=== PATIENT | female | born 1955 | race Caucasian/White ===

== ENCOUNTER → 2020-11-16 12:05 | Outpatient (BNVA) | payer SELFPAY | PROVIDERS: Family Provider Nurse Practitioner; PCP Nurse Practitioner; Visit Provider Nurse Practitioner Family | DX: R39.11 Hesitancy of micturition (principal) | CPT/HCPCS: 81000 ==

== ENCOUNTER → 2021-03-05 09:40 | Outpatient (BNVA) | payer SELFPAY | PROVIDERS: Family Provider Nurse Practitioner; PCP Nurse Practitioner; Visit Provider Dermatology | DX: Z01.89 Encounter for other specified special examinations (principal) ==

== ENCOUNTER 2021-05-29 14:35 | Outpatient (CLI) | payer MEDICARE, SELFPAY ==
--- NOTE | 2021-05-29 15:00 | US_ITS ---
WS: [email or web address] RIGHT UPPER QUADRANT ULTRASOUND HISTORY: R10.11 - Right upper quadrant pain COMPARISON: None available. Liver: 16.7 cm in length. Normal size liver. No bile duct dilatation or mass. Portal Vein: Normal hepatopetal flow with monophasic waveform. Gallbladder: Normally distended gallbladder with no stones or wall thickening. CBD: 0.4 cm Pancreas: Poorly visualized. Right kidney: 10.7 cm in length. Normal size and echogenicity. No hydronephrosis or mass. Aorta and IVC: Unremarkable abdominal aorta and IVC. No ascites. US/US gall bladder 11762 IMPRESSION: 1. Normal gallbladder. 2. No bile duct dilatation. 3. Poorly visualized pancreas.
== END 2021-05-29 14:36 | disposition home or self-care (01) ==
PROVIDERS: PCP Nurse Practitioner; Visit Provider Nurse Practitioner
DX: R10.11 Right upper quadrant pain (principal)
CPT/HCPCS: 76705

== ENCOUNTER → 2021-10-16 09:21 | Outpatient (BNVA) | payer MEDICARE, SELFPAY | PROVIDERS: PCP Nurse Practitioner; Visit Provider Nurse Practitioner | DX: I73.00 Raynaud's syndrome without gangrene (principal); G25.81 Restless legs syndrome; M79.7 Fibromyalgia; E11.65 Type 2 diabetes mellitus with hyperglycemia; F41.8 Other specified anxiety disorders; J45.909 Unspecified asthma, uncomplicated; E79.0 Hyperuricemia without signs of inflammatory arthritis and tophaceous disease | CPT/HCPCS: 80053; 80061; 81000; 83036; 85025 ==

== ENCOUNTER → 2022-01-21 08:55 | Outpatient (BNVA) | payer MEDICARE, SELFPAY | PROVIDERS: PCP Nurse Practitioner; Visit Provider Nurse Practitioner | DX: E11.65 Type 2 diabetes mellitus with hyperglycemia (principal); J45.909 Unspecified asthma, uncomplicated; G25.81 Restless legs syndrome; G47.00 Insomnia, unspecified; F41.8 Other specified anxiety disorders; I73.00 Raynaud's syndrome without gangrene; B37.0 Candidal stomatitis; M79.7 Fibromyalgia | CPT/HCPCS: 80053; 80061; 81003; 82043; 82607; 83036; 84443; 85025; 87086 ==

== ENCOUNTER → 2022-02-20 10:03 | Outpatient (BNVA) | payer MEDICARE, SELFPAY | PROVIDERS: PCP Nurse Practitioner; Visit Provider Nurse Practitioner | DX: M79.10 Myalgia, unspecified site (principal); E55.9 Vitamin D deficiency, unspecified; M79.603 Pain in arm, unspecified | CPT/HCPCS: 80053; 82306; 82607; 85651; 86140 ==

== ENCOUNTER 2022-02-25 06:52 | Outpatient (CLI) | payer MEDICARE, SELFPAY ==
--- NOTE | 2022-02-25 07:00 | US_ITS ---
WS: [email or web address] EXAMINATION: US soft tissue/extremity 47955 REASON FOR EXAM: M79.10 - Myalgia, unspecified site focal palpable abnormality near the antecubital f katelin COMPARISON: None available. ORDER DATE: 02/25/2022 7:01 AM TECHNIQUE: Ultrasound imaging is obtained in the area of interest using duplex, color flow, imaging w ith spectral analysis. FINDINGS: There is an ovoid focus of uniform increased echogenicity having smooth outline and measuring approxi mately 22 mm in length by 7 mm in width which is avascular. This is consistent with the area of palpa ble abnormality and is consistent with the appearance of a benign lipoma. No focal abnormalities othe rwise noted, no sign of fluid collections. Normal fascial planes are otherwise demonstrated. US/US soft tissue/extremity [id number] IMPRESSION: Small focal lipoma is demonstrated near the antecubital fossa as described fransisco plummer
== END 2022-02-25 06:53 | disposition home or self-care (01) ==
LOC: RAD 06:53
PROVIDERS: PCP Nurse Practitioner; Visit Provider Nurse Practitioner
DX: M79.10 Myalgia, unspecified site (principal)
CPT/HCPCS: 76882

== ENCOUNTER → 2022-05-08 10:46 | Outpatient (BNVA) | payer MEDICARE, SELFPAY | PROVIDERS: PCP Nurse Practitioner; Visit Provider Nurse Practitioner | DX: E11.65 Type 2 diabetes mellitus with hyperglycemia (principal); I10 Essential (primary) hypertension; R70.0 Elevated erythrocyte sedimentation rate | CPT/HCPCS: 80053; 80061; 83036; 86160; 86162; 86235; 86255; 86376; 86431 ==

== ENCOUNTER → 2022-05-09 11:38 | Outpatient (BNVA) | payer MEDICARE, SELFPAY | PROVIDERS: PCP Nurse Practitioner; Visit Provider Nurse Practitioner | DX: E11.65 Type 2 diabetes mellitus with hyperglycemia (principal); I10 Essential (primary) hypertension; E79.0 Hyperuricemia without signs of inflammatory arthritis and tophaceous disease; F41.8 Other specified anxiety disorders; J45.909 Unspecified asthma, uncomplicated; M79.7 Fibromyalgia; G47.00 Insomnia, unspecified; E55.9 Vitamin D deficiency, unspecified; I73.00 Raynaud's syndrome without gangrene | CPT/HCPCS: 82043 ==

== ENCOUNTER → 2022-08-01 09:18 | Outpatient (BNVA) | payer MEDICARE, SELFPAY | PROVIDERS: PCP Nurse Practitioner; Visit Provider Family Medicine | DX: E11.65 Type 2 diabetes mellitus with hyperglycemia (principal); E55.9 Vitamin D deficiency, unspecified | CPT/HCPCS: 80053; 82306; 83036 ==

== ENCOUNTER → 2022-08-19 10:13 | Outpatient (BNVA) | payer MEDICARE, SELFPAY | PROVIDERS: PCP Nurse Practitioner; Visit Provider Internal Medicine Rheumatology | DX: M45.6 Ankylosing spondylitis lumbar region (principal); M75.22 Bicipital tendinitis, left shoulder; M19.90 Unspecified osteoarthritis, unspecified site; Z79.899 Other long term (current) drug therapy; M77.32 Calcaneal spur, left foot; M77.8 Other enthesopathies, not elsewhere classified; M19.042 Primary osteoarthritis, left hand | CPT/HCPCS: 36415; 73070; 73130; 73630; 85025; 85651; 86140; 86200; 86812; 99204 ==

== ENCOUNTER → 2022-10-20 13:37 | Outpatient (BNVA) | payer MEDICARE, SELFPAY | PROVIDERS: PCP Nurse Practitioner; Visit Provider Internal Medicine Rheumatology | DX: M25.50 Pain in unspecified joint (principal); Z79.899 Other long term (current) drug therapy; R60.0 Localized edema; M75.22 Bicipital tendinitis, left shoulder | CPT/HCPCS: 99214 ==

== ENCOUNTER → 2022-10-24 10:23 | Outpatient (BNVA) | payer MEDICARE, SELFPAY | PROVIDERS: PCP Nurse Practitioner; Visit Provider Nurse Practitioner | DX: E11.65 Type 2 diabetes mellitus with hyperglycemia (principal) | CPT/HCPCS: 80053; 80061; 81000; 83036; 84443 ==

== ENCOUNTER 2023-03-31 13:03 | Outpatient (CLI) | payer MEDICARE, SELFPAY ==
--- NOTE | 2023-03-31 13:00 | MM_ITS ---
WS: [email or web address] BILATERAL 3D TOMOSYNTHESIS DIGITAL SCREENING MAMMOGRAPHY WITH CAD CLINICAL INFORMATION: SCREENING HISTORY: Screening mammogram. No current complaints. COMPARISON: Baseline TECHNIQUE: Bilateral CC and MLO views. FINDINGS: Scattered fibroglandular densities bilaterally. 6 mm ovoid nodule inner RIGHT breast may represent an intramammary lymph node but indeterminant. Recommend further evaluation with RIGHT breast diagnostic mammography and ultrasound. This is best seen on the cc view. Few incidental punctate calcifications.Vascular calcification. Unremarkable LEFT breast. IMPRESSION: MM/[place] [id number] BI-RADS: 0-Incomplete: Need additional imaging evaluation FOLLOW UP: Need Additional Imaging Recommend RIGHT breast diagnostic mammography and ultrasound.
== END 2023-03-31 13:04 | disposition home or self-care (01) ==
LOC: MOBLMAM 13:09
PROVIDERS: PCP Nurse Practitioner; Visit Provider Nurse Practitioner
DX: Z12.31 Encounter for screening mammogram for malignant neoplasm of breast (principal)
CPT/HCPCS: 77063; 77067

== ENCOUNTER → 2023-04-16 13:31 | Outpatient (BNVA) | payer MEDICARE, SELFPAY | PROVIDERS: PCP Nurse Practitioner; Visit Provider Nurse Practitioner | DX: E11.65 Type 2 diabetes mellitus with hyperglycemia (principal) | CPT/HCPCS: 80053; 80061; 81000; 82043; 83036 ==

== ENCOUNTER 2023-04-20 13:43 | Outpatient (CLI) | payer MEDICARE, SELFPAY ==
--- NOTE | 2023-04-20 13:47 | MM_ITS ---
WS: [email or web address] ADDITIONAL VIEWS RIGHT MAMMOGRAM WITH DIGITAL BREAST TOMOSYNTHESIS. RIGHT BREAST ULTRASOUND HISTORY: R92.8 - Other abnormal and inconclusive findings on diagn... COMPARISON: 03/31/2023 RIGHT MAMMOGRAM: Spot compression views and true ML with digital breast tomosynthesis and SM. Additional imaging of the hyperdense nodule in the medial RIGHT breast. Nodule measures 7 x 7 mm and persists on additional imaging. On the CC projection this appears to be a multi lobulated nodule or 3 nodules closely associated with each other. RIGHT BREAST ULTRASOUND 2-D and color Doppler imaging submitted. In the medial RIGHT breast at 4:00 there is a corresponding lobulated mass measuring 7 x 6 mm. Mass i s at 4:00, 3 cm from the nipple. This is not a simple cyst. IMPRESSION: MM/[place] [id number] BI-RADS: 4-Suspicious Finding-Biopsy Should Be Considered FOLLOW UP: Biopsy Recommended Hypoechoic lobulated mass RIGHT breast at 3:00. Probably benign but this is not a simple cyst. Recommend follow-up ultrasound-guided RIGHT breast biopsy.
--- NOTE | 2023-04-20 14:30 | US_ITS ---
WS: [email or web address] ADDITIONAL VIEWS RIGHT MAMMOGRAM WITH DIGITAL BREAST TOMOSYNTHESIS. RIGHT BREAST ULTRASOUND HISTORY: R92.8 - Other abnormal and inconclusive findings on diagn... COMPARISON: 03/31/2023 RIGHT MAMMOGRAM: Spot compression views and true ML with digital breast tomosynthesis and SM. Additional imaging of the hyperdense nodule in the medial RIGHT breast. Nodule measures 7 x 7 mm and persists on additional imaging. On the CC projection this appears to be a multi lobulated nodule or 3 nodules closely associated with each other. RIGHT BREAST ULTRASOUND 2-D and color Doppler imaging submitted. In the medial RIGHT breast at 4:00 there is a corresponding lobulated mass measuring 7 x 6 mm. Mass i s at 4:00, 3 cm from the nipple. This is not a simple cyst. IMPRESSION: US/US breast RT limited* [id number] BI-RADS: 4-Suspicious Finding-Biopsy Should Be Considered FOLLOW UP: Biopsy Recommended Hypoechoic lobulated mass RIGHT breast at 3:00. Probably benign but this is not a simple cyst. Recommend follow-up ultrasound-guided RIGHT breast biopsy.
== END 2023-04-20 13:44 | disposition home or self-care (01) ==
PROVIDERS: PCP Nurse Practitioner; Visit Provider Nurse Practitioner
DX: R92.8 Other abnormal and inconclusive findings on diagnostic imaging of breast (principal); N63.15 Unspecified lump in the right breast, overlapping quadrants
CPT/HCPCS: 76642; 77061; G0279

== ENCOUNTER → 2023-04-21 11:07 | Outpatient (BNVA) | payer MEDICARE, SELFPAY | PROVIDERS: PCP Nurse Practitioner; Visit Provider Internal Medicine Rheumatology | DX: Z79.899 Other long term (current) drug therapy (principal); E55.9 Vitamin D deficiency, unspecified; M25.50 Pain in unspecified joint; R60.0 Localized edema; M75.22 Bicipital tendinitis, left shoulder; E11.42 Type 2 diabetes mellitus with diabetic polyneuropathy; L60.3 Nail dystrophy; L84 Corns and callosities; G62.9 Polyneuropathy, unspecified; M79.671 Pain in right foot; M79.672 Pain in left foot | CPT/HCPCS: 11055; 11721; 36415; 82306; 83735; 84132; 85025; 99203; 99214 ==

== ENCOUNTER → 2023-07-23 14:17 | Outpatient (BNVA) | payer MEDICARE, SELFPAY | PROVIDERS: PCP Nurse Practitioner; Visit Provider Nurse Practitioner | DX: E11.65 Type 2 diabetes mellitus with hyperglycemia (principal); E55.9 Vitamin D deficiency, unspecified | CPT/HCPCS: 80053; 80061; 81000; 82043; 82306; 82607; 83036 ==

== ENCOUNTER → 2023-08-12 11:02 | Outpatient (BNVA) | payer MEDICARE, SELFPAY | PROVIDERS: PCP Nurse Practitioner; Visit Provider Internal Medicine Rheumatology | DX: Z79.899 Other long term (current) drug therapy; M06.041 Rheumatoid arthritis without rheumatoid factor, right hand; M06.042 Rheumatoid arthritis without rheumatoid factor, left hand; Z71.85 Encounter for immunization safety counseling | CPT/HCPCS: 99214 ==

== ENCOUNTER → 2023-09-30 09:54 | Outpatient (BNVA) | payer MEDICARE, SELFPAY | PROVIDERS: PCP Nurse Practitioner; Visit Provider Nurse Practitioner Family | DX: M54.9 Dorsalgia, unspecified (principal) | CPT/HCPCS: 81000 ==

== ENCOUNTER 2024-01-13 16:46 | Outpatient (CLI) | payer MEDICARE, SELFPAY ==
--- NOTE | 2024-01-13 17:04 | XR_ITS ---
WS: [email or web address] Exam: XR tibia fibula LT 2V [id number] Date/Time of Exam: 01/13/2024 5:04 PM Reason For Exam: PAIN IN LEFT LEG No fracture or dislocation. Normal soft tissues. XR/XR tibia fibula LT 2V [id number] IMPRESSION: 1. Negative tibia and fibula
--- NOTE | 2024-01-13 17:04 | XR_ITS ---
WS: [email or web address] Exam: XR knee LT 3V* [id number] Date/Time of Exam: 01/13/2024 5:04 PM Reason For Exam: PAIN IN LEFT KNEE No fracture or dislocation. The joint compartments are preserved. No joint effusion. A 1.8 cm circums cribed lucent lesion is noted in the lower medial femur. This does not have suspicious appearance and may represent a fibrous cortical defect. Normal soft tissues. Recommendations: If the patient fails to respond to conservative management, follow-up with nuclear b one scan could be considered. XR/XR knee LT 3V* [id number] IMPRESSION: 1. No fracture or joint effusion. 2. 1.8 cm circumscribed bone lesion seen in the lower medial femur. This does n ot have suspicious appearance and may represent a fibrous cortical defect.
== END 2024-01-13 16:47 | disposition home or self-care (01) ==
LOC: RAD 16:49
PROVIDERS: PCP Nurse Practitioner; Visit Provider Anesthesiology Pain Medicine
DX: M79.605 Pain in left leg (principal); M25.562 Pain in left knee
CPT/HCPCS: 73562; 73590

== ENCOUNTER → 2024-01-26 12:17 | Outpatient (BNVA) | payer MEDICARE, SELFPAY | PROVIDERS: PCP Nurse Practitioner; Visit Provider Nurse Practitioner | DX: I10 Essential (primary) hypertension (principal); E78.1 Pure hyperglyceridemia; E11.65 Type 2 diabetes mellitus with hyperglycemia; E55.9 Vitamin D deficiency, unspecified | CPT/HCPCS: 80053; 80061; 83036 ==

== ENCOUNTER 2024-02-01 20:00 | Outpatient (CLI) | payer MEDICARE, SELFPAY | END 2024-02-01 20:01 | disposition home or self-care (01) | LOC: SLEEP 02-02 01:02 | PROVIDERS: PCP Nurse Practitioner; Visit Provider Anesthesiology Pain Medicine | DX: G47.33 Obstructive sleep apnea (adult) (pediatric) (principal); G47.36 Sleep related hypoventilation in conditions classified elsewhere; G47.61 Periodic limb movement disorder | CPT/HCPCS: 95810 ==

== ENCOUNTER → 2024-07-04 14:15 | Outpatient (BNVA) | payer MEDICARE, SELFPAY | PROVIDERS: PCP Nurse Practitioner; Visit Provider Nurse Practitioner | DX: J45.909 Unspecified asthma, uncomplicated (principal); E55.9 Vitamin D deficiency, unspecified; E11.65 Type 2 diabetes mellitus with hyperglycemia; F41.8 Other specified anxiety disorders; M79.7 Fibromyalgia; I73.00 Raynaud's syndrome without gangrene; E87.6 Hypokalemia; I10 Essential (primary) hypertension; G62.9 Polyneuropathy, unspecified; M25.50 Pain in unspecified joint | CPT/HCPCS: 80053; 80061; 82306; 82607; 83036; 84443 ==

== ENCOUNTER → 2025-01-03 15:33 | Outpatient (BNVA) | payer MEDICARE, SELFPAY | PROVIDERS: PCP Nurse Practitioner; Visit Provider Nurse Practitioner | DX: E11.65 Type 2 diabetes mellitus with hyperglycemia (principal); E55.9 Vitamin D deficiency, unspecified | CPT/HCPCS: 80053; 80061; 82306; 83036 ==

== ENCOUNTER 2025-02-14 11:20 | Outpatient (CLI) | payer MEDICARE, SELFPAY ==
--- NOTE | 2025-02-14 11:24 | XRR_ITS ---
PROCEDURE INFORMATION: Exam: XR Lumbosacral Spine Exam date and time: 02/14/2025 11:30 AM Age: 69 years old Clinical indication: Low back pain; PT states lt sided abdomen pain w/ numbness down both legs x 3 weeks. ; Additional info: Other spondylosis with radiculopathy TECHNIQUE: Imaging protocol: Radiologic exam of the lumbosacral spine. Views: 6 or more views. Including flexion and extension views. COMPARISON: No relevant prior studies available. FINDINGS: Bones/joints: L5-S1 moderate to severe largely posterior disc space narrowing. Multilevel mild periductal germ endplate changes throughout the spine. Soft tissues: Unremarkable. Vasculature: Scattered vascular calcifications. XR/XR lumbar spine 6V w f/e [id number] IMPRESSION: 1. L5-S1 moderate to severe largely posterior disc space narrowing. 2. Multilevel mild periductal germ endplate changes throughout the spine. 3. Scattered vascular calcifications.
== END 2025-02-14 11:21 | disposition home or self-care (01) ==
PROVIDERS: PCP Nurse Practitioner; Visit Provider Student in an Organized Health Care Education/Training Program
DX: M47.27 Other spondylosis with radiculopathy, lumbosacral region (principal); M25.552 Pain in left hip; M51.379 Other intervertebral disc degeneration, lumbosacral region without mention of lumbar back pain or lower extremity pain; I87.8 Other specified disorders of veins; R93.7 Abnormal findings on diagnostic imaging of other parts of musculoskeletal system
CPT/HCPCS: 72114

== ENCOUNTER → 2025-03-02 10:31 | Outpatient (BNVA) | payer MEDICARE, SELFPAY | PROVIDERS: PCP Nurse Practitioner; Visit Provider Clinical Nurse Specialist Adult Health | DX: R30.0 Dysuria (principal); N39.0 Urinary tract infection, site not specified | CPT/HCPCS: 81000; 87086 ==

== ENCOUNTER 2025-03-10 09:21 | Outpatient (CLI) | payer MEDICARE, SELFPAY ==
--- NOTE | 2025-03-10 09:30 | XR_ITS ---
WS: [email or web address] Left hip, 2 views, 03/10/2025 Clinical Data: M25.552 - Pain in left hip Comparison: None. Findings: No fractures or dislocations are seen. The left hip shows no erosion or sclerosis. There is minimal narrowing and slight irregularity of the left femoral head. No fragmentation of the left femoral head is seen. The soft tissues are not remarkable. The adjacent pelvis is normal. 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
== END 2025-03-10 09:22 | disposition home or self-care (01) ==
PROVIDERS: PCP Nurse Practitioner; Visit Provider Clinical Nurse Specialist Adult Health
DX: M16.12 Unilateral primary osteoarthritis, left hip (principal)
CPT/HCPCS: 73502